=== PATIENT | female | born 1955 | race African-American/Black ===

== ENCOUNTER 2017-03-07 20:59 | Inpatient (IN) | payer MEDICAID, OTHER ==
[~2017-03-07] VITALS: Ht 170.2 cm; Wt 80.3 kg
[~2017-03-07 20:59] MED LIST: ASPI-1159 PO; Benadryl IVP; CLON0.1T PO; DEPER5 PO; DOCU-138 PO; FURO-151 PO; HYDR-519 PO; LORA2TAB2 PO; MORP30TA66 PO; Plavix PO; QUET400T PO; TEMA30CA5 PO
[2017-03-07] MEDS ORDERED: ALBUTEROL (0.083%) 2.5MG/3ML NEB HHN STA ×2 (21:10→22:42)
[2017-03-07] MEDS ORDERED: METHYLPREDNISOLONE SOD SUCC 125 MG/2 ML VIAL IV STA (21:10)
[2017-03-07] MEDS ORDERED: IPRATROPIUM BROMIDE (0.02%) 0.5MG/2.5ML NEB HHN STA (21:10)
[2017-03-07] MEDS ORDERED: LEVOFLOXACIN 750MG PREMIX 150 ML IV ONE (21:15)
[2017-03-07] MEDS ORDERED: ALBUTEROL (0.5%) 2.5MG/0.5ML NEB HHN ONE ×2 (21:21→23:09)
[2017-03-07] MEDS ORDERED: ONDANSETRON HCL 4MG/2ML VIAL IV ONE (22:15)
[2017-03-07] MEDS ORDERED: MORPHINE SULFATE 4 MG/ML CPJ (NOT FOR IM USE) IV ONE (22:15)
[2017-03-07 23:16] LABS: BASOPHILS % 0.3 % (0.0-2.0); EOSINOPHILS % 0.4 % (0.0-5.0); HEMATOCRIT. 30.9 % (36.0-48.0); HEMOGLOBIN. 9.9 g/dL (12.0-16.0); MEAN CORPUSCULAR HEMOGLOBIN 26.4 pg (28.0-32.0); MEAN CORPUSCULAR VOLUME 82.1 fL (81.0-99.0); MEAN PLATELET VOLUME 8.8 fl (7.4-10.4); MONOCYTES % 7.3 % (2.0-8.0); PLATELET 365 x1000/uL (130-400); RED BLOOD CELL COUNT 3.76 mill/uL (4.2-5.4); RED CELL DISTRIBUTION WIDTH 18.9 % (11.6-14.6)
[2017-03-07 23:23] LABS: CHLORIDE 103 mEq/L (98-107)
[2017-03-07 23:29] LABS: D-DIMER 0.65 mg/L FEU (<0.50); PROTHROMBIN TIME 10.4 sec (9.4-11.6)
[2017-03-07 23:36] LABS: CARBON DIOXIDE 29 mEq/L (21-32); TROPONIN I < 0.02 ng/mL (0.00-0.04)
[2017-03-08] VITALS (11 sets, daily range): BP systolic 122–151; BP diastolic 57–94
[2017-03-08] MEDS ORDERED: DIPHENHYDRAMINE 50MG/ML VIAL IV ONE (00:45)
[2017-03-08] MEDS ORDERED: CLONIDINE 0.1MG TABLET PO PRN (01:00)
[2017-03-08] MEDS ORDERED: ACETAMINOPHEN 325MG TABLET PO PRN (01:00)
[2017-03-08] MEDS ORDERED: IPRATROPIUM/ALBUTEROL 0.5-3(2.5)MG/3ML NEB INH PRN ×2 (01:00→14:00)
[2017-03-08] MEDS ORDERED: MAGNESIUM/ALUMINUM HYDROXIDE/SIMETHICONE 30ML UDC PO PRN (01:00)
[2017-03-08] MEDS ORDERED: ONDANSETRON HCL 4MG/2ML VIAL IV PRN (01:00)
[2017-03-08] MEDS ORDERED: DOCUSATE SODIUM 100MG CAPSULE PO PRN (01:00)
[2017-03-08 01:13] LABS: BG BASE EXCESS 1.9 mmol/L (-2.0-2.0); BG BILEVEL POS AIRWAY PRESSURE 15/5; BG CARBOXYHEMOGLOBIN 0.8 % (0.5-1.5); BG DEOXYHEMOGLOBIN 0.9 % (0.0-5.0); BG FRACTION INSPIRED OXYGEN 30; BG HCO3 ACT 24.5 mmol/L (22.0-26.0); BG METHEMOGLOBIN 0.1 % (0.0-1.5); BG OXYGEN SATURATION 99.1 % (92.0-98.5); BG OXYHEMOGLOBIN 98.2 % (94.0-97.0); BG PCO2 31.3 mmHg (35.0-45.0); BG PH 7.511 (7.350-7.450); BG PO2 161.7 mmHg (75.0-100.0); BG SAMPLE SITE RIGHT BRACHIAL; BG TOTAL HEMOGLOBIN 10.7 g/dL (12.0-18.0); BG VENT MODE MASK - BIPAP
[2017-03-08] MEDS ORDERED: DEXTROSE 50% WATER 50ML SYRINGE IV PRN (02:30)
[2017-03-08] MEDS: HYDROCODONE/ACETAMINOPHEN 5/325MG TABLET PO PRN (03:54)
[2017-03-08] MEDS: METHYLPREDNISOLONE SOD SUCC 40 MG/ML VIAL IV SCH ×4 (04:08→21:32)
[2017-03-08] MEDS ORDERED: HYDROCODONE/ACETAMINOPHEN 10/325MG TABLET PO PRN (05:00)
[2017-03-08] MEDS ORDERED: MEDICATION NOT ON FORMULARY EA (Lorazepam 2 MG) PO PRN (05:00)
[2017-03-08] MEDS ORDERED: BENADRYL 50 MG IVP PRN (05:00)
[2017-03-08] MEDS ORDERED: DIPHENHYDRAMINE 50MG/ML VIAL IV PRN ×2 (06:00→09:15)
[2017-03-08] MEDS: MORPHINE SULFATE 30MG TABLET SR PO SCH ×2 (06:04→17:00)
[2017-03-08 06:34] LABS: BASOPHILS % 0.1 % (0.0-2.0); HEMATOCRIT. 29.7 % (36.0-48.0); HEMOGLOBIN. 9.4 g/dL (12.0-16.0); LYMPHOCYTES % 15.9 % (20.0-50.0); MEAN CORPUSCULAR HEMOGLOBIN 25.9 pg (28.0-32.0); MEAN CORPUSCULAR VOLUME 81.4 fL (81.0-99.0); MEAN PLATELET VOLUME 8.5 fl (7.4-10.4); MONOCYTES % 2.1 % (2.0-8.0); NEUTROPHILS % 81.9 % (40.0-76.0); PLATELET 392 x1000/uL (130-400); RED BLOOD CELL COUNT 3.65 mill/uL (4.2-5.4); RED CELL DISTRIBUTION WIDTH 18.8 % (11.6-14.6)
[2017-03-08 07:04] LABS: CREATINE KINASE 12 IU/L (26-192); CREATINE KINASE MB FRACTION < 0.5 ng/mL (0.5-3.6); TROPONIN I < 0.02 ng/mL (0.00-0.04)
[2017-03-08] MEDS: INSULIN LISPRO 100 UNITS/ML SUBCUT SCH ×4 (08:00→22:02)
[2017-03-08] MEDS: CLOPIDOGREL 75MG TABLET PO SCH (09:00)
[2017-03-08] MEDS: CLONIDINE 0.1MG TABLET PO SCH (09:00)
[2017-03-08] MEDS ORDERED: MEDICATION NOT ON FORMULARY EA ([Plavix] 75 MG) PO SCH (09:00)
[2017-03-08] MEDS ORDERED: MEDICATION NOT ON FORMULARY EA (Morphine Sulfate 30 MG) PO SCH (09:00)
[2017-03-08] MEDS ORDERED: MEDICATION NOT ON FORMULARY EA (Quetiapine Fumarate (Seroquel) 400 MG) PO SCH (09:00)
[2017-03-08] MEDS: LORAZEPAM 1MG TABLET PO PRN ×3 (09:04→21:33)
[2017-03-08] MEDS ORDERED: MORPHINE SULFATE 4 MG/ML CPJ (NOT FOR IM USE) IV PRN (09:15)
[2017-03-08] MEDS: FUROSEMIDE 40MG TABLET PO SCH (09:27)
[2017-03-08] MEDS: ASPIRIN 81MG EC TABLET PO SCH (09:27)
[2017-03-08] MEDS: DIVALPROEX SODIUM 500MG DR TABLET PO SCH ×2 (09:27→17:55)
[2017-03-08] MEDS: QUETIAPINE FUMARATE 100MG TABLET PO SCH ×2 (09:28→17:55)
[2017-03-08] MEDS: ENOXAPARIN 40MG/0.4ML SYR SUBCUT SCH (09:30)
[2017-03-08] MEDS: SODIUM CHLORIDE 0.9% 1,000 ML IV SCH ×2 (09:38→22:04)
[2017-03-08] MEDS: DOCUSATE SODIUM 100MG CAPSULE PO SCH ×2 (09:54→17:55)
[2017-03-08] MEDS: BLOOD SUGAR DIAGNOSTIC STRIP TEST SCH ×4 (10:00→21:38)
[2017-03-08] MEDS: IPRATROPIUM/ALBUTEROL 0.5-3(2.5)MG/3ML NEB HHN SCH ×3 (12:26→20:42)
[2017-03-08] MEDS ORDERED: METHYLPREDNISOLONE SOD SUCC 40 MG/ML VIAL IV SCH (14:45)
[2017-03-08] MEDS: DIPHENHYDRAMINE 50MG/ML VIAL IV PRN ×2 (17:34→21:37)
[2017-03-08] MEDS: MORPHINE SULFATE 4 MG/ML CPJ (NOT FOR IM USE) IV PRN ×2 (17:42→21:38)
[2017-03-08] MEDS ORDERED: TEMAZEPAM 30 MG PO SCH (21:00)
[2017-03-08] MEDS: TEMAZEPAM 15MG CAPSULE PO SCH (21:33)
[2017-03-08] MEDS: LEVOFLOXACIN 500MG PREMIX 100 ML IV SCH (21:33)
[2017-03-08] MEDS: HYDROCORTISONE 1% CREAM 30GM TOP SCH (22:05)
[2017-03-08] MEDS ORDERED: LEVOFLOXACIN 500MG PREMIX 100 ML IV SCH (23:00)
[2017-03-08 23:41] LABS: CREATINE KINASE 11 IU/L (26-192); CREATINE KINASE MB FRACTION < 0.5 ng/mL (0.5-3.6); TROPONIN I < 0.02 ng/mL (0.00-0.04)
[2017-03-09] VITALS (10 sets, daily range): BP systolic 130–154; BP diastolic 76–94
[2017-03-09] MEDS: IPRATROPIUM/ALBUTEROL 0.5-3(2.5)MG/3ML NEB HHN SCH ×6 (00:02→20:29)
[2017-03-09] MEDS: HYDROCODONE/ACETAMINOPHEN 5/325MG TABLET PO PRN ×3 (00:34→12:21)
[2017-03-09] MEDS: DIPHENHYDRAMINE 50MG/ML VIAL IV PRN ×5 (01:42→17:41)
[2017-03-09] MEDS: MORPHINE SULFATE 4 MG/ML CPJ (NOT FOR IM USE) IV PRN ×5 (01:42→17:42)
[2017-03-09] MEDS: LORAZEPAM 1MG TABLET PO PRN ×4 (04:31→18:04)
[2017-03-09] MEDS: METHYLPREDNISOLONE SOD SUCC 40 MG/ML VIAL IV SCH ×3 (06:03→21:47)
[2017-03-09] MEDS: BLOOD SUGAR DIAGNOSTIC STRIP TEST SCH ×4 (07:58→21:48)
[2017-03-09] MEDS: INSULIN LISPRO 100 UNITS/ML SUBCUT SCH ×4 (08:13→21:00)
[2017-03-09] MEDS: QUETIAPINE FUMARATE 100MG TABLET PO SCH ×2 (08:25→16:48)
[2017-03-09] MEDS: ASPIRIN 81MG EC TABLET PO SCH (08:25)
[2017-03-09] MEDS: CLOPIDOGREL 75MG TABLET PO SCH (08:26)
[2017-03-09] MEDS: MORPHINE SULFATE 30MG TABLET SR PO SCH ×2 (08:26→16:48)
[2017-03-09] MEDS: DIVALPROEX SODIUM 500MG DR TABLET PO SCH ×2 (08:26→16:48)
[2017-03-09] MEDS: ENOXAPARIN 40MG/0.4ML SYR SUBCUT SCH (08:26)
[2017-03-09] MEDS: FUROSEMIDE 40MG TABLET PO SCH (08:27)
[2017-03-09] MEDS: DOCUSATE SODIUM 100MG CAPSULE PO SCH ×2 (08:27→16:48)
[2017-03-09] MEDS: CLONIDINE 0.1MG TABLET PO SCH (09:00)
[2017-03-09] MEDS: SODIUM CHLORIDE 0.9% 1,000 ML IV SCH (11:10)
[2017-03-09] MEDS: HYDROCORTISONE 1% CREAM 30GM TOP SCH ×2 (11:30→21:49)
[2017-03-09 13:53] LABS: CLARITY URINE CLEAR (CLEAR); COLOR URINE YELLOW (YELLOW); GLUCOSE URINE NEGATIVE (NEGATIVE); KETONES URINE NEGATIVE (NEGATIVE); LEUKOCYTE ESTERASE URINE NEGATIVE (NEGATIVE); NITRITE URINE NEGATIVE (NEGATIVE); OCCULT BLOOD URINE NEGATIVE (NEGATIVE); PROTEIN URINE NEGATIVE (NEGATIVE); SPECIFIC GRAVITY URINE 1.019 (1.005-1.030)
[2017-03-09 14:23] LABS: *AMPHETAMINES SCREEN URINE NEGATIVE (NEGATIVE); *BARBITURATES SCREEN URINE NEGATIVE (NEGATIVE); *BENZODIAZEPINES SCREEN URINE PRESUMTIVE POSITIVE (NEGATIVE); *COCAINE SCREEN URINE PRESUMTIVE POSITIVE (NEGATIVE); CANNABINOID URINE SCREEN NEGATIVE (NEGATIVE); METHADONE URINE SCREEN NEGATIVE (NEGATIVE); OPIATES URINE SCREEN PRESUMTIVE POSITIVE (NEGATIVE); PHENCYCLIDINE URINE SCREEN NEGATIVE (NEGATIVE)
[2017-03-09] MEDS: TEMAZEPAM 15MG CAPSULE PO SCH (21:48)
[2017-03-09] MEDS: LEVOFLOXACIN 500MG PREMIX 100 ML IV SCH (21:48)
[2017-03-09 21:54] LABS: *AMPHETAMINES SCREEN URINE NEGATIVE (NEGATIVE); *BARBITURATES SCREEN URINE NEGATIVE (NEGATIVE); *BENZODIAZEPINES SCREEN URINE PRESUMTIVE POSITIVE (NEGATIVE); *COCAINE SCREEN URINE PRESUMTIVE POSITIVE (NEGATIVE); CANNABINOID URINE SCREEN NEGATIVE (NEGATIVE); METHADONE URINE SCREEN NEGATIVE (NEGATIVE); OPIATES URINE SCREEN PRESUMTIVE POSITIVE (NEGATIVE); PHENCYCLIDINE URINE SCREEN NEGATIVE (NEGATIVE)
[2017-03-10] VITALS (10 sets, daily range): BP systolic 130–150; BP diastolic 80–93
[2017-03-10] MEDS: IPRATROPIUM/ALBUTEROL 0.5-3(2.5)MG/3ML NEB HHN SCH ×4 (00:27→12:19)
[2017-03-10] MEDS: SODIUM CHLORIDE 0.9% 1,000 ML IV SCH ×2 (00:30→13:20)
[2017-03-10] MEDS: DIPHENHYDRAMINE 50MG/ML VIAL IV PRN ×4 (01:15→13:07)
[2017-03-10] MEDS: MORPHINE SULFATE 4 MG/ML CPJ (NOT FOR IM USE) IV PRN ×3 (01:16→09:38)
[2017-03-10] MEDS: LORAZEPAM 1MG TABLET PO PRN ×3 (01:25→09:37)
[2017-03-10] MEDS: HYDROCODONE/ACETAMINOPHEN 5/325MG TABLET PO PRN ×2 (04:32→11:17)
[2017-03-10] MEDS: METHYLPREDNISOLONE SOD SUCC 40 MG/ML VIAL IV SCH (05:33)
[2017-03-10 06:50] LABS: HEMATOCRIT. 28.4 % (36.0-48.0); HEMOGLOBIN. 9.1 g/dL (12.0-16.0); MEAN CORPUSCULAR HEMOGLOBIN 26.4 pg (28.0-32.0); MEAN CORPUSCULAR VOLUME 82.2 fL (81.0-99.0); MEAN PLATELET VOLUME 8.5 fl (7.4-10.4); PLATELET 403 x1000/uL (130-400); RED BLOOD CELL COUNT 3.46 mill/uL (4.2-5.4); RED CELL DISTRIBUTION WIDTH 19.1 % (11.6-14.6)
[2017-03-10 07:34] LABS: CARBON DIOXIDE 29 mEq/L (21-32); CHLORIDE 102 mEq/L (98-107)
[2017-03-10] MEDS: BLOOD SUGAR DIAGNOSTIC STRIP TEST SCH ×2 (08:26→13:05)
[2017-03-10] MEDS: DOCUSATE SODIUM 100MG CAPSULE PO SCH (08:49)
[2017-03-10] MEDS: HYDROCORTISONE 1% CREAM 30GM TOP SCH (08:49)
[2017-03-10] MEDS: QUETIAPINE FUMARATE 100MG TABLET PO SCH (08:49)
[2017-03-10] MEDS: CLOPIDOGREL 75MG TABLET PO SCH (08:49)
[2017-03-10] MEDS: MORPHINE SULFATE 30MG TABLET SR PO SCH (08:51)
[2017-03-10] MEDS: ASPIRIN 81MG EC TABLET PO SCH (08:51)
[2017-03-10] MEDS: DIVALPROEX SODIUM 500MG DR TABLET PO SCH (08:51)
[2017-03-10] MEDS: FUROSEMIDE 40MG TABLET PO SCH (08:51)
[2017-03-10] MEDS: ENOXAPARIN 40MG/0.4ML SYR SUBCUT SCH (08:52)
[2017-03-10] MEDS: CLONIDINE 0.1MG TABLET PO SCH (08:52)
[2017-03-10] MEDS: INSULIN LISPRO 100 UNITS/ML SUBCUT SCH ×2 (08:53→14:22)
[2017-03-10 10:26] LABS: PLATELET ESTIMATE SLIGHTLY INCREASED
[2017-03-10] MEDS ORDERED: LEVO500T2 PO (12:49)
[2017-03-10] MEDS ORDERED: PULM50 IH (12:49)
[2017-03-10] MEDS ORDERED: HYDR-4001 PO (12:49)
[2017-03-10] MEDS ORDERED: P20 PO (12:49)
[2017-03-10] MEDS ORDERED: PREDNISONE 20MG TABLET PO SCH (18:00)
== END 2017-03-10 18:26 | disposition home or self-care (01) | DRG 140 ==
LOC: ER 21:29 → 5EST 22:52 → EDBEDREQTM 22:54 → EDBEDREQ 22:54 → EDBEDREQSVC 22:56 → ENRESERV 23:46 → EDBEDREQ 03-08 03:22
PROVIDERS: ADMIT Internal Medicine; ATTEND Internal Medicine
PROC: 5A09457 Assistance with Respiratory Ventilation, 24-96 Consecutive Hours, Continuous Positive Airway Pressure (ICD-10-PCS; principal; 2017-03-07)
DX: J44.1 Chronic obstructive pulmonary disease with (acute) exacerbation (principal); J96.00 Acute respiratory failure, unspecified whether with hypoxia or hypercapnia; E87.2 Acidosis; I11.9 Hypertensive heart disease without heart failure; D64.9 Anemia, unspecified; E11.9 Type 2 diabetes mellitus without complications; F17.200 Nicotine dependence, unspecified, uncomplicated; G40.909 Epilepsy, unspecified, not intractable, without status epilepticus; F41.9 Anxiety disorder, unspecified; E78.5 Hyperlipidemia, unspecified; E87.6 Hypokalemia; Z88.9 Allergy status to unspecified drugs, medicaments and biological substances; Z85.3 Personal history of malignant neoplasm of breast; Z90.10 Acquired absence of unspecified breast and nipple; Z86.73 Personal history of transient ischemic attack (TIA), and cerebral infarction without residual deficits; Z90.49 Acquired absence of other specified parts of digestive tract; Z90.710 Acquired absence of both cervix and uterus; Z88.0 Allergy status to penicillin; Z88.8 Allergy status to other drugs, medicaments and biological substances; Z88.6 Allergy status to analgesic agent; Z88.1 Allergy status to other antibiotic agents; Z91.011 Allergy to milk products; Z79.1 Long term (current) use of non-steroidal anti-inflammatories (NSAID); Z79.82 Long term (current) use of aspirin; Z79.899 Other long term (current) drug therapy
CPT/HCPCS: 36415; 36600; 71010; 78582; 80048; 80053; 80061; 80165; 80305; 81003; 82375; 82550; 82553; 82805; 82962; 83605; 83880; 84443; 84484; 85025; 85379; 85610; 87040; 93005; 93306; 93970; 94640; 94660; 96365; 96366; 96375; 99291; A9558; J1200; J1650; J1815; J1956; J2270; J2405; J2920; J2930; J7030; J7611; J7620